=== PATIENT | female | born 1995 | race African-American/Black ===

== ENCOUNTER 2018-02-13 17:51 | Emergency (ER) | payer SELFPAY ==
[~2018-02-13] VITALS: Ht 149.9 cm; Wt 65.0 kg
[2018-02-13 17:53] VITALS: BP 141/86; PULSE 86; RESP 16; TEMP 98.3; O2SAT 99
--- NOTE | 2018-02-13 20:04 | PD ---
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 She states her last period was 2 weeks ago. She is sexually active without any control. She states that she has been having some intermittent cramping. She is not having any pain currently. She denies any fever chills. Some nausea but no vomiting. No abdominal pain. No discharge or abnormal bleeding. No dysuria or frequency. Symptoms are mild. No alleviating or exacerbating activity. Patient has not performed a home test because she does not believe they are accurate. History Past Medical Histgory Medical History: Denies Significant Hx Tetanus Vaccination: < 5 Years LMP: 01/2018 Past Surgical History Surgical History: No Previous Surgery Social History Alcohol Use: Yes (socially) Tobacco Use: Yes (socially) Allergies-Medications (Allergen,Severity, Reaction): Coded Allergies: No Known Allergies (Unverified , 12/03/15) Reported Meds & Prescriptions Reported Meds & Active Scripts Active No Active Prescriptions or Reported Medications Review of Systems Except as stated in HPI: all other systems reviewed are Neg Physical Exam Narrative GENERAL: Well-developed, well-nourished in no acute distress. Nontoxic appearing. HEAD: Normocephalic, atraumatic. EYES: Pupils equal round and reactive. Extraocular motions intact. No scleral icterus. No injection or drainage. ENT: TMs clear without erythema. The external auditory canals clear. Nose: clear . Posterior pharynx is pink and moist. No tonsillar edema or exudate. Uvula midline. Airway patent. NECK: Trachea midline.Supple, nontender, moves head freely. No central bony tenderness or spasm. CARDIOVASCULAR: Regular rate and rhythm without murmurs, gallops, or rubs. RESPIRATORY: Clear to auscultation. Breath sounds equal bilaterally. No wheezes , rales, or rhonchi. GASTROINTESTINAL: Abdomen soft, non-tender, nondistended. No hepato-splenomegaly , or palpable masses. No guarding. EXTREMITIES: No clubbing, cyanosis, or edema. No joint tenderness, effusion, or edema noted. BACK: Nontender without deformity or crepitance. No flank tenderness. Data Data Last Documented VS Vital Signs Date Time Temp Pulse Resp B/P (MAP) Pulse Ox O2 Delivery O2 Flow Rate FiO2 02/13/18 17:53 98.3 86 16 141/86 (104) 99 MDM Medical Screen Exam Complete: Yes Emergency Medical Condition: No Differential Diagnosis MDM: Moderate Differential diagnoses: Chlamydia, gonorrhea, syphilis, chancroid, hepatitis, HIV, herpes, , Narrative Course A medical screening exam was performed: At the time of evaluation the presenting medical condition was determined not to be of an emergent nature. The patient was given the option of receiving additional care, but declined. Patient was given options for additional community resources from which to obtain care. The Patient Has Been advised to seek medical attention for their presenting complaint. The patient has been advised to return to the ER at any time if an emergent condition develops. Primary Impression: Encounter for medical screening examination Scripts No Active Prescriptions or Reported Meds Condition: Jose Malcolm Feb 13, 2018 20:04
== END 2018-02-13 20:14 | disposition left against medical advice (07) ==
LOC: NEPD 17:51
DX: Z32.00 Encounter for pregnancy test, result unknown (principal); R11.0 Nausea
CPT/HCPCS: 99281